=== PATIENT | female | born 1980 | race Caucasian/White ===

== ENCOUNTER 2017-10-22 18:40 | Emergency (ER) | payer SELFPAY ==
[~2017-10-22] VITALS: Ht 162.6 cm; Wt 54.4 kg
[2017-10-22 20:42] LABS: BASOPHILS ABSOLUTE AUTO 0.06 K/mm3 (0.00-0.23); BASOPHILS PERCENT AUTO 1 % (0-2); EOSINOPHILS ABSOLUTE AUTO 0.13 K/mm3 (0.00-0.68); EOSINOPHILS PERCENT AUTO 1 % (0-6); Hematocrit 42.1 % (33.0-51.0); Hemoglobin 14.1 g/dL (11.5-16.0); IMMATURE GRAN ABSOLUTE AUTO 0.02 K/mm3 (0.00-0.10); IMMATURE GRAN PERCENT AUTO 0 % (0-1); LYMPHOCYTES ABSOLUTE AUTO 3.18 K/mm3 (0.84-5.20); LYMPHOCYTES PERCENT AUTO 32 % (21-46); MONOCYTES ABSOLUTE AUTO 0.96 K/mm3 (0.16-1.47); MONOCYTES PERCENT AUTO 10 % (4-13); Mean Corpuscular HGB 31.9 pg (26.0-34.0); Mean Corpuscular HGB Conc 33.5 g/dL (31.5-36.5); Mean Corpuscular Volume 95 fL (80-100); NEUTROPHILS PERCENT AUTO 57 % (41-73); Platelet Count 238 K/mm3 (150-400); RDW Coefficient Variation 11.4 % (11.7-14.2); RDW Standard Deviation 40.1 fL (35.1-46.3); Red Blood Cell Count 4.42 M/mm3 (3.80-5.20); White Blood Cell Count 10.05 K/mm3 (4.00-11.30)
[2017-10-22 21:04] LABS: Alanine Aminotransfer (ALT/SGP 21 U/L (12-78); Albumin, Blood 4.2 g/dL (3.4-5.0); Albumin/Globulin Ratio 1.2 (0.8-1.8); Alk Phos 52 U/L (50-136); Anion Gap 6 mmol/L (6-16); Aspartate Aminotrans (AST/SGOT 18 U/L (12-37); Bilirubin, Total 0.5 mg/dL (0.1-1.0); Blood Urea Nitrogen 12 mg/dL (8-24); Bun/Creatinine Ratio 17.5 (12.0-20.0); CO2, Blood 30 mmol/L (21-32); Calcium, Blood 8.7 mg/dL (8.5-10.1); Chloride, Blood 104 mmol/L (98-108); Creatinine, Blood 0.69 mg/dL (0.40-1.00); Globulin, Blood 3.5 g/dL (2.2-4.0); Glomerular Filtration Rate >60 (60-); Glucose, Blood 76 mg/dL (70-99); Potassium, Blood 3.5 mmol/L (3.5-5.5); Sodium, Blood 140 mmol/L (136-145); Total Protein, Blood 7.7 g/dL (6.4-8.2); Troponin I <0.015 ng/mL (0.000-0.040)
[2017-10-22] MEDS ORDERED: ALPR.5 PO (21:15)
== END 2017-10-22 21:48 | disposition home or self-care (01) ==
LOC: ER 18:40
PROVIDERS: Emergency Medicine
DX: F41.0 Panic disorder [episodic paroxysmal anxiety] (principal); F43.9 Reaction to severe stress, unspecified; F17.210 Nicotine dependence, cigarettes, uncomplicated
CPT/HCPCS: 36415; 71046; 80053; 84484; 85025; 93005; 93010; 99283

== ENCOUNTER 2021-01-02 18:09 | Inpatient (IN) | payer OTHER ==
[~2021-01-02] VITALS: Ht 157.5 cm; Wt 75.0 kg
[~2021-01-02 18:09] MED LIST: ALPR.5 PO
[2021-01-02] MEDS ORDERED: PRENATAL TABLE1 EAC2 PO (18:26)
[2021-01-02] MEDS ORDERED: CEPH500 PO (18:26)
[2021-01-02 19:13] LABS: BASOPHILS ABSOLUTE AUTO 0.07 K/mm3 (0.00-0.23); BASOPHILS PERCENT AUTO 0 % (0-2); EOSINOPHILS ABSOLUTE AUTO 0.12 K/mm3 (0.00-0.68); EOSINOPHILS PERCENT AUTO 1 % (0-6); Hematocrit 35.7 % (33.0-51.0); IMMATURE GRAN ABSOLUTE AUTO 0.23 K/mm3 (0.00-0.10); IMMATURE GRAN PERCENT AUTO 1 % (0-1); LYMPHOCYTES ABSOLUTE AUTO 3.24 K/mm3 (0.84-5.20); LYMPHOCYTES PERCENT AUTO 19 % (21-46); MONOCYTES ABSOLUTE AUTO 1.39 K/mm3 (0.16-1.47); MONOCYTES PERCENT AUTO 8 % (4-13); Mean Corpuscular HGB Conc 33.6 g/dL (31.5-36.5); Mean Corpuscular Volume 92 fL (80-100); Mean Platelet Volume 11.6 fL (9.1-12.4); NEUTROPHILS ABSOLUTE AUTO 12.25 K/mm3 (1.96-9.15); NEUTROPHILS PERCENT AUTO 71 % (41-73); Platelet Count 279 K/mm3 (150-400); RDW Coefficient Variation 13.4 % (11.7-14.2); RDW Standard Deviation 45.1 fL (35.1-46.3); Red Blood Cell Count 3.87 M/mm3 (3.80-5.20)
[2021-01-02 19:31] LABS: SARS-Cov-2 (COVID-19) PCR, MMC NEGATIVE (NEGATIVE)
--- NOTE | 2021-01-02 19:56 | NUR ---
[birth year]211955 Arie Villalta BABY BOY BORN AT 1941, CORD BLOOD SENT WITH OB STAFF, dR. Beard DID NOT WANT THE CORD SEGEMNT SENT FOR GASES.
[2021-01-03 05:38] LABS: Hematocrit 28.4 % (33.0-51.0); Hemoglobin 9.4 g/dL (11.5-16.0); Mean Corpuscular HGB 30.9 pg (26.0-34.0); Mean Corpuscular HGB Conc 33.1 g/dL (31.5-36.5); Mean Corpuscular Volume 93 fL (80-100); Mean Platelet Volume 10.8 fL (9.1-12.4); Platelet Count 261 K/mm3 (150-400); RDW Coefficient Variation 13.2 % (11.7-14.2); RDW Standard Deviation 44.8 fL (35.1-46.3); Red Blood Cell Count 3.04 M/mm3 (3.80-5.20); White Blood Cell Count 16.63 K/mm3 (4.00-11.30)
--- NOTE | 2021-01-03 09:43 | NUR ---
PT REPORTS PAIN OF 6/10, DISCUSSED DIFFERENT OPTIONS TO MANAGE PAIN, PT WANTS TO WAIT UNTIL OTHER PAIN MEDICATION OPTION IS DUE
--- NOTE | 2021-01-03 11:56 | NUR ---
HELP TO REPOSITION IN BED FOR COMFORT AND ADJUSTED ABD BINDER TO MORE APPROPRIATE POSITION - PER PT FEELS BETTER
--- NOTE | 2021-01-03 15:31 | NUR ---
SALINE LOCK WAS DC, CATH INTACT, NO INFULTRATION INDICATED, NO LONGER NEEDED. HH RN WAS AT BEDSIDE.
[2021-01-03] MEDS ORDERED: IBUP800 PO (18:40)
[2021-01-03] MEDS ORDERED: Percocet 5-3251 EACH PO (18:41)
== END 2021-01-04 11:40 | disposition home or self-care (01) | DRG 784 ==
LOC: OBS 18:09 → BC 18:11 → OBS 18:23 → BC 18:24
PROVIDERS: ADMIT Family Medicine
PROC: 0UT70ZZ Resection of Bilateral Fallopian Tubes, Open Approach (ICD-10-PCS; 2021-01-02)
PROC: 10D00Z1 Extraction of Products of Conception, Low, Open Approach (ICD-10-PCS; principal; 2021-01-02 19:00)
DX: O32.1XX0 Maternal care for breech presentation, not applicable or unspecified (principal); D62 Acute posthemorrhagic anemia; O24.420 Gestational diabetes mellitus in childbirth, diet controlled; O99.334 Smoking (tobacco) complicating childbirth; F17.210 Nicotine dependence, cigarettes, uncomplicated; O90.81 Anemia of the puerperium; Z20.822 Contact with and (suspected) exposure to COVID-19; Z3A.38 38 weeks gestation of pregnancy; Z37.0 Single live birth
CPT/HCPCS: 36415; 82947; 85025; 85027; 86850; 86900; 86901; 88302; A9270; J0690; J1885; J2370; J2405; J2590; J2765; J3010; J7120; U0004

== ENCOUNTER 2024-02-23 12:02 | Emergency (ER) | payer OTHER ==
[~2024-02-23] VITALS: Ht 157.5 cm; Wt 62.6 kg
[~2024-02-23 12:02] MED LIST changes: +CEPH500 PO; +IBUP800 PO; +PRENATAL TABLE1 EAC2 PO; +Percocet 5-3251 EACH PO
[2024-02-23 12:47] LABS: BASOPHILS ABSOLUTE AUTO 0.05 K/mm3 (0.00-0.23); BASOPHILS PERCENT AUTO 1 % (0-2); EOSINOPHILS ABSOLUTE AUTO 0.18 K/mm3 (0.00-0.68); EOSINOPHILS PERCENT AUTO 2 % (0-6); Hematocrit 39.7 % (33.0-51.0); Hemoglobin 13.4 g/dL (11.5-16.0); IMMATURE GRAN ABSOLUTE AUTO 0.02 K/mm3 (0.00-0.10); IMMATURE GRAN PERCENT AUTO 0 % (0-1); LYMPHOCYTES ABSOLUTE AUTO 2.32 K/mm3 (0.84-5.20); LYMPHOCYTES PERCENT AUTO 31 % (21-46); MONOCYTES PERCENT AUTO 9 % (4-13); Mean Corpuscular HGB 32.3 pg (26.0-34.0); Mean Corpuscular HGB Conc 33.8 g/dL (31.5-36.5); Mean Corpuscular Volume 96 fL (80-100); Mean Platelet Volume 10.1 fL (9.1-12.4); NEUTROPHILS PERCENT AUTO 57 % (41-73); Platelet Count 279 K/mm3 (150-400); RDW Coefficient Variation 12.5 % (11.7-14.2); RDW Standard Deviation 44.3 fL (35.1-46.3); Red Blood Cell Count 4.15 M/mm3 (3.80-5.20); White Blood Cell Count 7.57 K/mm3 (4.00-11.30)
[2024-02-23 13:08] LABS: Albumin/Globulin Ratio 1.3 (0.8-1.8); Bilirubin, Total 0.5 mg/dL (0.1-1.0); Bun/Creatinine Ratio 16.9 (12.0-20.0); Calcium, Blood 8.8 mg/dL (8.5-10.1); Creatinine, Blood 0.71 mg/dL (0.40-1.00); Globulin, Blood 3.1 g/dL (2.2-4.0); Potassium, Blood 4.2 mmol/L (3.5-5.5); Total Protein, Blood 7.1 g/dL (6.4-8.2)
[2024-02-23] MEDS ORDERED: IBUP600 PO (17:25)
[2024-02-23] MEDS ORDERED: METPRE4DP PO (17:25)
[2024-02-23 17:33] VITALS: BP 132/83
== END 2024-02-23 17:33 | disposition home or self-care (01) ==
LOC: ER 12:02
PROVIDERS: Physician Assistant
DX: M54.14 Radiculopathy, thoracic region (principal); F17.210 Nicotine dependence, cigarettes, uncomplicated; Z79.899 Other long term (current) drug therapy
CPT/HCPCS: 71046; 80053; 84484; 85025; 93005; 93010; 99284-25

== ENCOUNTER 2024-12-01 23:18 | Emergency (ER) | payer OTHER ==
[~2024-12-01] VITALS: Ht 157.5 cm; Wt 53.5 kg
[~2024-12-01 23:18] MED LIST changes: +IBUP600 PO; +METPRE4DP PO
[2024-12-02 00:01] LABS: BASOPHILS ABSOLUTE AUTO 0.06 K/mm3 (0.00-0.23); BASOPHILS PERCENT AUTO 1 % (0-2); EOSINOPHILS ABSOLUTE AUTO 0.28 K/mm3 (0.00-0.68); EOSINOPHILS PERCENT AUTO 3 % (0-6); Hematocrit 40.3 % (33.0-51.0); Hemoglobin 13.6 g/dL (11.5-16.0); IMMATURE GRAN ABSOLUTE AUTO 0.03 K/mm3 (0.00-0.10); IMMATURE GRAN PERCENT AUTO 0 % (0-1); LYMPHOCYTES ABSOLUTE AUTO 3.43 K/mm3 (0.84-5.20); LYMPHOCYTES PERCENT AUTO 33 % (21-46); MONOCYTES ABSOLUTE AUTO 1.06 K/mm3 (0.16-1.47); MONOCYTES PERCENT AUTO 10 % (4-13); Mean Corpuscular HGB 31.9 pg (26.0-34.0); Mean Corpuscular HGB Conc 33.7 g/dL (31.5-36.5); Mean Corpuscular Volume 94 fL (80-100); Mean Platelet Volume 9.7 fL (9.1-12.4); NEUTROPHILS ABSOLUTE AUTO 5.53 K/mm3 (1.96-9.15); NEUTROPHILS PERCENT AUTO 53 % (41-73); Platelet Count 301 K/mm3 (150-400); RDW Coefficient Variation 12.8 % (11.7-14.2); RDW Standard Deviation 44.4 fL (35.1-46.3); Red Blood Cell Count 4.27 M/mm3 (3.80-5.20); White Blood Cell Count 10.39 K/mm3 (4.00-11.30)
[2024-12-02 00:19] LABS: Albumin, Blood 4.4 g/dL (3.4-5.0); Albumin/Globulin Ratio 1.5 (0.8-1.8); Bilirubin, Total 0.6 mg/dL (0.1-1.0); Bun/Creatinine Ratio 17.6 (12.0-20.0); Creatinine, Blood 0.91 mg/dL (0.40-1.00); Globulin, Blood 2.9 g/dL (2.2-4.0); Potassium, Blood 3.8 mmol/L (3.5-5.5); Total Protein, Blood 7.3 g/dL (6.4-8.2)
[2024-12-02 00:37] VITALS: BP 134/84
== END 2024-12-02 00:44 | disposition home or self-care (01) ==
LOC: ER 23:18
PROVIDERS: Student in an Organized Health Care Education/Training Program
DX: R07.81 Pleurodynia (principal); F17.210 Nicotine dependence, cigarettes, uncomplicated; Z79.899 Other long term (current) drug therapy
CPT/HCPCS: 71046; 80053; 84484; 85025; 93005; 93010; 99284-25